=== PATIENT | female | born 1995 | race Caucasian/White ===

== ENCOUNTER 2018-09-16 13:50 | Emergency (ER) | payer MEDICAID, SELFPAY ==
[2018-09-16 13:52] VITALS: BP 121/72; PULSE 104; RESP 16; TEMP 36; O2SAT 100; BMI 25.8
--- NOTE | 2018-09-16 14:27 | CT_ITS ---
STUDY: CT BRAIN WITHOUT CONTRAST REASON FOR EXAM: Female, 23 years old. 2 month history of tunnel vision. RADIATION DOSAGE (If Supplied By Facility): CTDIvol = ( 44.99 ) mGy, DLP = ( 745.49 ) mGycm TECHNIQUE: Transaxial CT imaging of the brain was performed without administration of intravenous contrast material. Individualized dose optimization techniques were used for this CT. COMPARISON: None. FINDINGS: Normal soft tissue structures. Normal calvarium. Normal size ventricles and extra-axial spaces for the patient's age. Normal white matter tracts of the cerebral hemispheres. Normal basal ganglia and thalami. Normal brainstem. Normal cerebellum. There is no intracranial hemorrhage. There are no findings of an acute ischemic infarction. Normal visualized paranasal sinuses. CT/Brain/Head without Contrast IMPRESSION: Normal unenhanced CT scan of the brain. Electronically Signed: Jeffery Solis MD at 15:38 EST , Service support ,
[2018-09-16 15:08] LABS: Absolute Lymphocyte Count 2.16 X10^3/ul (0.83-4.51); Absolute Neutrophil Count 6.7 X10^3/uL (2.0-7.7); Basophil# 0.04 X10^3/uL; Basophil% 0.4 % (0-1); Eosinophil# 0.03 X10^3/uL; Eosinophils% 0.3 % (0-5); Hematocrit 40.7 % (37-47); Hemoglobin 14.1 g/dl (12.0-15.0); Lymphocyte # 2.16 X10^3/ul (4.0); Lymphocyte % 22.3 % (19-41); Mean Corp Hgb Conc 34.6 g/gl (32-36); Mean Corpuscular Hgb 29.6 pg (27.0-32.0); Mean Corpuscular Volume 85.5 fL (81-99); Mean Platelet Vol. 9.2 fl (6.2-12.0); Monocyte# 0.71 X10^3/uL; Monocyte% 7.3 % (0-10); Neutrophil # 6.72 X10^3/uL (2.7-7.7); Neutrophil % 69.6 % (47-70); Platelet Count 450 K/mm3 (150-450); RBC Distribution Width SD 36.6 fl (35.1-43.9); Red Blood Count 4.76 M/mm3 (4.2-5.4); White Blood Count 9.7 K/mm3 (4.4-11.0)
[2018-09-16 15:09] LABS: POSITIVE COUNT NO; POSITIVE DIFFERENTIAL NO; POSITIVE MORPHOLOGY NO
[2018-09-16 15:19] LABS: Prothrombin Time (Protime)PT. 12.7 SECONDS (11.7-14.9)
[2018-09-16 15:20] LABS: Partial Thromboplast Time 28.9 Seconds (24.1-36.2)
[2018-09-16 15:24] LABS: Anion Gap 9 (5-15); BUN 15 mg/dL (7-18); BUN/Creat Ratio 22.8 RATIO (10-20); Calcium,Total 8.9 mg/dL (8.5-10.1); Chloride 102 mmol/L (98-107); Creatinine, Serum 0.66 mg/dL (0.55-1.02); EST Glomerular Filtration Rate 116 mL/min (>60); Est Glom Filt Rate - Afr Amer 140 mL/min (>60); Estimated Creatinine Clearance 126.71 ml/min; Glucose 88 mg/dL (74-106); Potassium 3.7 mmol/L (3.5-5.1); Sodium Level 135 mmol/L (136-145)
--- NOTE | 2018-09-16 16:25 | ED.VISSUMM ---
- ER Visit Summary Date of Service: 09/16/18 Chief Complaint: Tunnel vision History of Present Illness: The patient is a 23 F who presents with tunnel vision that has been getting worse over the past 1-1/2 months. Patient states she has pressure behind both of her eyes but is worse on the right. Patient states her tunnel vision is also worse on the right. Patient saw an juice bar team member 3 days ago and was told she had swelling of her optic nerves and increased pressure in her brain. Patient was given a slip for an outpatient MRI with and without contrast and MRV. Patient has not had this scheduled yet. Patient admits to intermittent pressure on the left side of her head. Patient denies any diplopia. Patient denies any nausea or vomiting. Patient denies any paresthesias or weakness. Patient does admit to some neck pain. Patient denies any difficulty urinating. Physical Examination: Vital signs are stable. Patient is afebrile. Patient is in no acute distress. Pupils are equal, round, and reactive to light bilaterally. Extraocular muscles are intact. There is papilledema noted bilaterally on funduscopic examination. There is no hemorrhage noted. Oral mucosa is pink and moist. Neck is supple. Trachea is midline. There is no JVD noted. Heart was regular rate and rhythm. Lungs are clear and equal bilateral. Abdomen is soft. Bowel sounds are normal. There is no tenderness. There is no guarding noted. Skin is warm dry. Cranial nerves II through XII are intact. There are no focal motor or sensory deficits noted. The remaining physical exam is within normal limits. Test Results: CT scan of the brain does not show any mass. There is no acute intracranial abnormality. CBC and basic metabolic profile were within normal limits. Emergency Department Course and Treatment: Patient was advised of her findings. Patient was instructed to schedule her outpatient MRI and MRV soon. Patient was instructed to follow-up with her primary care physician and juice [employer] team member in 5-7 days. Patient and family understood and were agreeable with the plan. All questions were answered. Disposition: Discharge home Impression: Papilledema This note was generated with [id number] software. It may contain incorrect words, spelling, and punctuation that were not noted in review of the chart prior to signing ED Disposition - Plan for ED Patient: Disposition: Home or Assisted Living Diagnosis: Papilledema Instructions: ED Double Vision Referrals: Care Physician,No Primary [Primary Care Provider] -
--- NOTE | 2018-09-16 16:29 | ED.DCSUM_ITS ---
- ER Visit Summary Date of Service: 09/16/18 Chief Complaint: Tunnel vision History of Present Illness: The patient is a 23 F who presents with tunnel vision that has been getting worse over the past 1-1/2 months. Patient states she has pressure behind both of her eyes but is worse on the right. Patient s tates her tunnel vision is also worse on the right. Patient saw an police officer booking 3 days ago and was told she had swelling of her optic nerves and increased pressure in her brain. Patient was given a slip for an outpatient MRI with and without contrast and MRV. Patient has not had this scheduled yet. Patient admits to intermittent pressure on the left side of her head. Patient denies any diplopia. Patient denies any nausea or vomiting. Patient denies any paresthesias or weakness. Patient does admit to some neck pain. Patient denies any difficulty urinating. Physical Examination: Vital signs are stable. Patient is afebrile. Patient is in no acute distress. Pupils are equal, round, and reactive to light bilaterally. Extraocular muscles are intact. There is papilledema noted bilaterally on funduscopic examination. There is no hemorrhage noted. Oral mucosa is pink and moist. Neck is supple. Trachea is midline. There is no JVD noted. Heart was regular rate and rhythm. Lungs are clear and equal bilateral. Abdomen is soft. Bowel sounds are normal. There is no tenderness. There is no guarding noted. Skin is warm dry. Cranial nerves II through XII are intact. There are no focal motor or sensory deficits noted. The remaining physical exam is within normal limits. Test Results: CT scan of the brain does not show any mass. There is no acute intracranial abnormality. CBC and basic metabolic profile were within normal limits. Emergency Department Course and Treatment: Patient was advised of her findings. Patient was instructed to schedule her outpatient MRI and MRV soon. Patient was instructed to follow-up with her primary care physician and police officer booking in 5-7 days. Patient and family understood and were agreeable with the plan. All questions were answered. Disposition: Discharge home Impression: Papilledema This note was generated with [employer] software. It may contain incorrect words, spelling, and punctuation that were not noted in review of the chart prior to signing ED Disposition - Plan for ED Patient: Disposition: Home or Assisted Living Diagnosis: Papilledema Instructions: ED Double Vision Referrals: Care Physician,No Primary [Primary Care Provider] -
[2018-09-16 16:42] VITALS: BP 109/74; PULSE 62; RESP 15; O2SAT 97
== END 2018-09-16 16:43 | disposition home or self-care (01) ==
PROVIDERS: Emergency Provider Emergency Medicine
DX: H47.10 Unspecified papilledema (principal)
CPT/HCPCS: 70450; 80048; 85025; 85610; 85730; 99283

== ENCOUNTER → 2018-09-23 16:17 | Outpatient (CLI) | payer SELFPAY ==
[2018-09-16 13:52] VITALS: BMI 25.8
--- NOTE | 2018-09-23 16:24 | MRI_ITS ---
Papilledema, tunnel vision, R/O venous sinus thrombosis Exam: Cranial MRV TECHNIQUE: Routine non-contrast Whza-tv-sigeum MRV angiogram protocol was performed without gadolinium. 3D reconstructions were reviewed. IV Contrast dosage and agent: None. COMPARISON: MR brain 09/23/2018 FINDINGS: Normal examination. Normal flow related enhancement of the dural venous sinuses. No thrombosis or focal lesion identified. No suspicious findings. MRI/MRV Head Without Contrast IMPRESSION: Negative non-contrast cranial MRV. No evidence of dural venous thrombosis. at 0307 Reported and signed by: Yunier Murray MD Electronically Signed: Yunier Murray, at 3:06 EST Tel , Service support ,
--- NOTE | 2018-09-23 16:24 | MRI_ITS ---
HISTORY: Papilledema, tunnel vision, R/O venous sinus thrombosis TECHNIQUE: Multiplanar and multisequence MR images of the brain were obtained without and with gadolinium. IV Contrast dosage and agent: 7 cc Gadavist COMPARISON: Cranial CT 09/16/2018 FINDINGS: Good quality exam. No motion. Normal ventricles and normal coleman-white matter differentiation. No white matter disease. No intracranial mass, hemorrhage, or acute disease. Negative diffusion-weighted images. Posterior fossa and midline structures show no signal abnormality. Specifically, the pituitary gland is not enlarged. No enhancing lesion or extra-axial fluid collection. Normal flow voids within the major vessels. The cerebellar pontine angle regions appear normal. As visualized, the mastoids and paranasal sinuses are clear. MRI/Brain W/WO Contrast IMPRESSION: Normal examination. No suspicious findings. at 3134 Reported and signed by: Yunier Murray MD Electronically Signed: Yunier Murray, at 2:53 EST Tel , Service support ,
== END ==
DX: H47.11 Papilledema associated with increased intracranial pressure (principal)
CPT/HCPCS: 70544; 70553; A9585

== ENCOUNTER 2023-08-07 05:50 | Emergency (ER) | payer MEDICAID, SELFPAY ==
[2023-08-07 05:51] VITALS: BP 141/89; PULSE 88; RESP 18; TEMP 36.6; O2SAT 98; BMI 31.5
--- NOTE | 2023-08-07 06:12 | EDS_ITS ---
HPI History of Present Illness Chief Complaint: Chest Pain Informant: patient Narrative Narrative: Patient is a 28-year-old female who reports a past medical history of narcolepsy. She states she has had COVID in the past and her grandmother was just admitted to the TCU floor and there were patient is up there with COVID that she could have been exposed to while visiting. She states that she feels like her lungs are inflamed and this causes some chest discomfort and she is concerned that she may have developed COVID or pneumonia and therefore comes in for evaluation. Patient denies any family history of cardiac disease at a young age she denies any recent travel surgery or history of DVT/PE and she denies any history of excessive stimulant or illicit drug use. [facility] Medical History Narcolepsy Home Medications NK 08/07/23 [History Last Taken Unknown] Allergy/AdvReac Type Severity Reaction Status Date / Time amoxicillin AdvReac Itching Verified 08/07/23 05:55 Social History Smoking Status: Former smoker ROS ROS ED Constitutional Constitutional ED: Denies chills or fever(s) ENT ENT ED: Denies sore throat Cardiovascular Cardiovascular: Reports chest pain; Denies palpitations or racing heartbeat Respiratory/Chest Respiratory/Chest: Denies cough or dyspnea Gastrointestinal Gastrointestinal: Denies abdominal pain, diarrhea, nausea or vomiting Genitourinary Genitourinary ED: Denies dysuria Musculoskeletal Musculoskeletal: Denies myalgias Integumentary Denies rash Neurologic Neurologic: Denies headache(s) Hematologic/Lymphatic Hematologic/Lymphatic: Denies easy bleeding or easy bruising EXAM Physical Exam Const Vital Signs: 08/07/23 05:51 08/07/23 05:51 Temperature 97.8 F Temperature Source Temporal Pulse Rate 88 Respiratory Rate 18 Respiratory Effort Normal Blood Pressure 141/89 H Blood Pressure Mean 106 Pulse Ox 98 Oxygen Delivery Method Room Air Positive well nourished and well developed General Appearance ED: well developed; Negative for pallor HEENT Reports moist mucous membranes HEENT Narrative: There is mild cobblestoning the posterior pharynx consistent with sinus drainage No tongue or lip swelling. No oral lesions. No airway edema or compromise Eyes PERRL and EOMs intact bilaterally General Eye ED: Negative for scleral icterus Neck supple and no JVD Neck Narrative: No nuchal rigidity or meningeal signs noted Chest Wall palpation of chest normal Chest Narrative: No bony deformity or crepitance present Resp normal respiratory effort Resp Narrative: Breath sounds are slight diminished with faint rhonchi in the bilateral lower lobes but otherwise no nasal flaring retractions tachypnea stridor or accessory muscle use Cardio regular rate and regular rhythm Rate: other Other Details: Heart is regular rate and rhythm without murmurs rubs or gallops Radial and carotid pulses are equal and symmetric GI normal to inspection, nondistended, normoactive bowel sounds, non-tender, non- distended and no masses Auscultation: normoactive bowel sounds Palpation: soft Extremity normal to inspection Extremity Narrative: No asymmetric edema no pitting edema negative Homans' sign bilaterally Neuro oriented x3, CN's II-XII intact bilaterally and no sensory deficits noted Sensorium / Orientation: alert Motor Exam: strength 5/5 throughout Psych mental status grossly normal Skin no rashes or lesions noted General Skin Exam: Negative for jaundice or pallor MDM MDM MDM Narrative Medical decision making narrative: Patient presented to the ER with mild hypertension but otherwise stable vitals. She is low risk for acute coronary syndrome as she is not a diabetic does not have a family history of heart disease at young age and no reported history or treatment for hypertension hyperlipidemia or diabetes. He also denies any history of illicit drug use. Does admit to smoking when she was younger but quit 3 years ago. Her main concern was chest pain secondary to potential COVID or pneumonia or even a tumor as of her history of smoking. I do not feel there is need for a D-dimer as the patient is not tachycardic or hypoxic or febrile. She also does not have any history of travel surgery previous DVT or hormone use. With the patient's EKG showing no dysrhythmia or signs of ischemia or NE there is no concern at this time for acute coronary syndrome. Chest x-ray rules out pneumonia pneumothorax or pleural effusion. Viral swabs are negative for COVID flu and RSV. This time I do feel that she most likely has a start of a viral illness but as she is not hypoxic or in respiratory distress or requiring supplemental oxygen she is otherwise safe for discharge History & Record Review Discussion w/independent historian: Patient Radiography Diagnostic Testing: Clinical Impression(s) from Imaging Studies Chest X-Ray 08/07/23 06:18 IMPRESSION: No evidence of active intrathoracic disease. Electronically Signed: Frances Fine MD at 6:46 EST , 2 view chest x-ray as interpreted by the emergency medicine physician reveals no acute infiltrate pneumothorax or pleural effusion Discharge Plan Triage Chief Complaint: Chest Pain ED Provider: Duy Romero Dx/Rx/DC Orders Clinical Impression: Acute nonspecific chest pain with low risk of coronary artery disease Instructions: ED Chest Pain, Uncertain Cause, ED Viral Syndrome (Adult) Prescriptions: No Action NK Primary Care Provider: Care Physician,No Primary Referrals: Ramakrishna Tirado MD [Med Staff - Active Staff] - Care Physician,No Primary [Primary Care Provider] - Disposition Disposition: Home, Self Care
--- NOTE | 2023-08-07 06:18 | RAD_ITS ---
INDICATION: chest pain EXAMINATION/TECHNIQUE: X-RAY - XR Chest 2 Views COMPARISON: None. FINDINGS: LINES/DEVICES: None. LUNGS: No consolidation. No pneumothorax. MEDIASTINUM: Unremarkable. CARDIAC SILHOUETTE: Not enlarged. BONES AND SOFT TISSUES: No acute abnormalities. RAD/Chest PA and Lateral IMPRESSION: No evidence of active intrathoracic disease. Electronically Signed: Frances Fine MD at 6:46 EST ,
--- OUTSIDE RECORDS SUMMARY | 2023-08-07 06:39 | XMS RPT_ITS | CCD ---
Author Name Unknown Address [address] [place] [address] Organization [facility] Care Team Providers Care Forklift Supervisor Name Role Phone OSMANI FELIX Unavailable Unavailable PHYSICIAN, NONE Unavailable Unavailable [facility] Referring Unavailable Jay Finley MD Primary Care Provider Pcp, No Primary Care Provider Unavailabl e Pcp, No Primary Care Provider Unavailabl e Pcp, No Primary Care Provider Unavailabl e Joe Webb Unavailable [place] ADMISSIONS ASSISTANT, Mayra E Primary Care Provider Jay Finley MD Primary Care Provider Pcp ADMISSIONS ASSISTANT, No Primary Care Provider Unavailabl e Pcp ADMISSIONS ASSISTANT, No Primary Care Provider Unavailabl e Pcp ADMISSIONS ASSISTANT, No Primary Care Provider Unavailabl e Joe Webb Unavailable [place] ADMISSIONS ASSISTANT, Mayra E Primary Care Provider Allergies Allergy Classification Reported Allergen(s) Allergy Type Date of Onset Reaction(s) Facility (3 sources) Amoxicillin; Translations: [AMOXICILLIN] Drug Allergy 7 Itching [facility] Repository (2 sources) FLUoxetine Drug Allergy 9 Other: See Comments [facility] (2 sources) PARoxetine Drug Allergy 9 Other: See Comments [facility] (2 sources) Sertraline Drug Allergy 9 Other: See Comments [facility] Problems Active Problems Problem Classification Problem Date Documented Date Episodic/Chronic Allergic reactions (2 sources) Atopic dermatitis; Translations: [Other atopic dermatitis] Onset: 07-11-2011 08-26-2019 Chronic Anxiety disorders (2 sources) Anxiety state; Translations: [Generalized anxiety disorder] Onset: 07-21-2010 08-26-2019 Chronic Attention-deficit, conduct, and disruptive behavior disorders (2 sources) Attention deficit hyperactivity disorder; Translations: [Attention-deficit hyperactivity disorder, unspecified type] Onset: 07-21-2010 08-26-2019 Chronic Headache; including migraine (2 sources) Migraine; Translations: [Migraine, unspecified, not intractable, without status migrainosus] Onset: 10-26-2010 08-26-2019 Chronic Mood disorders (2 sources) Depressive disorder; Translations: [Other specified depressive episodes] Onset: 07-21-2010 08-26-2019 Chronic Other eye disorders (1 source) Papilledema associated with increased intracranial pressure Onset: 10-21-2018 Chronic Other eye disorders (2 sources) Optic disc edema; 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] Onset: 08-26-2019 08-26-2019 Chronic Other nervous system disorders (2 sources) Benign intracranial hypertension; Translations: [Benign intracranial hypertension] 12-05-2018 Chronic Other nervous system disorders (2 sources) Cataplexy and narcolepsy; Translations: [Narcolepsy with cataplexy] 08-26-2019 Chronic Substance-related disorders (4 sources) Drug abuse; Translations: [Other psychoactive substance abuse, uncomplicated] Onset: 08-26-2019 08-26-2019 Chronic Past or Other Problems Problem Classification Problem Date Documented Da te Episodic/Chronic Other aftercare (2 sources) Drug therapy finding; Translations: [Encounter for therapeutic drug level monitoring] Onset: 08-26-2019 08-26-2019 Episodic Poisoning by other medications and drugs (2 sources) Poisoning by multiple unspecified drugs, medicaments and biological substances, accidental (unintentional), initial encounter; Translations: [Poisoning by unspecified drug or medicinal substance] Onset: 08-26-2019 08-26-2019 Episodic Results Test Name Value Interpretation Reference Range Facil ity Encounters Encounter Date Encounter Type Care Provider Facility Start: 10-21-2018 Patient encounter procedure [facility] Facility:[facility] Start: 04-19-2018 End: 04-19-2018 Emergency department patient visit OSMANI FELIX Facility:B Start: 04-30-2015 Patient encounter procedure Concepcion Cole MD Work Phone: [facility] Start: 04-30-2015 Progress Note Concepcion Cole MD Work Phone: [facility] Start: 12-04-2011 Documentation procedure Danna Celeste Work Phone: [facility] Start: 12-04-2011 Historic EMR Danna Dougherty nce Work Phone: [facility] Procedures Date Procedure Procedure Detail Performing Clinician Start: 12-04-2011 SURGICAL PATHOLOGY, CONVERTED Danna Celeste Work Phone: Plan of Treatment Date Care Activity Detail Author Start: 04-06-2023 Influenza vaccination Influenza Vacc ine (#1) [facility] Start: 08-06-2022 Depression Assessment Depression Ass essment [facility] Start: 04-06-2022 Influenza vaccination INFLUENZA (Sea son Ended) [facility] Start: 2014 PAP TESTING PAP TESTING [facility] Start: 2012 Urine microalbumin profile [facility] Start: 2011 HEPATITIS C SCREENING HEPATITIS C SC REENING [facility] Start: 2011 HIV SCREENING HIV SCREENING [facility] Start: 1998 COVID-19 VACCINE (#1) COVID-19 VACCI NE (#1) [facility] Start: 01-27-1994 Covid-19 Vaccine (#1) Covid-19 Vacci ne (#1) [facility] Start: 1993 Hepatitis B Vaccine (1 of 3 - 3-dose series) Hepatitis B Vaccine (1 of 3 - 3-dose series) [facility] Payers Date Payer Category Payer Unknown [id number] 2001 Private Health Insurance [employer] A ET[employer] PPO [id number] 2001-2013 [address] [place] [address] PPO [id number] Social History Date Type Detail Facility [facility] Start: 1993 Sex Assigned At Not on file [facility] Start: 08-26-2019 End: 07-13-2020 History of Social function [facility] Start: 08-26-2019 End: 07-13-2020 Tobacco use panel [facility] Adult Depression Screening Assessment 0 [facility] History of Present illness Narrative 04-30-2015 Concepcion Cole MD - 04/30/2015 3:05 AM EDT Note Date & Type Note Facility 04-30-2015 History of Presen t illness Narrative DATE OF VISIT: 04/29/2015 HISTORY OF PRESENT ILLNESS: This 19-year-old female patient came [facility] with a complaint of lump in the right anterior chest wall area for the last 2 weeks which started in small pimple and increased in size and she was worried about infection and wanted to be evaluated. Denies any fever, chills, cough, nausea, vomiting or any diarrhea, trouble breathing or trouble swallowing. Denies any rash in other part of body. She did have some pimples and skin lesions, which has been apparently self drained in the past. The patient's last menstrual was 4 weeks ago. She has been on Suboxone. The patient is allergic to penicillin and amoxicillin, but no trouble taking Bactrim. Her shots are up-to-date. PHYSICAL EXAMINATION: VITAL SIGNS: Temperature 97.7, pulse is 82, respiratory rate 20, blood pressure 116/82, and pulse ox 99% on room air. SKIN: She was noted to have small, about 1.5 x 1 cm slightly raised erythematous rash in the right anterior chest wall area, which only slightly blanched, but no true abscess was noted. There was no red streak. No other rashes noted on general observation and examination throughout the body. HEENT: Throat is clear and intact. Ears clear. NECK: Supple. LUNGS: Clear. No wheezing or rales noted. HEART: Regular rate and rhythm. No murmurs auscultated. ABDOMEN: Soft, positive bowel sounds, nontender, no guarding, rebound or rigidity. EXTREMITIES: No skin rash. No joint edema or erythema. No nuchal rigidity. We did obtain a urine test, which was negative. She was put on Bactrim and advised gentle warm compress to affected area. If she starts having hive formation or any abscess, she needs to be evaluated for incision and drainage; however, we do not make an incision in the anterior chest wall area due to cosmetic reason with no apparent abscess and follow with primary care physician. ASSESSMENT: Infected skin rash in the anterior chest wall area. Needs followup. Concepcion Cole MD SP/nts [id number] CC: Verified/Reviewed by 09/28/20 1722 [email or web address] [facility] PATIENT NAME: VINOD CRAIG [address] [place] MEDICAL REC #: [id number] [place] [address] [facility]IC[facility] documented in this encounter [facility] Summary Purpose Family History No Family History Records FoundNo Family History Records FoundNo Family History Records FoundNo Family History Records Found Advance Directives Documents on File Type Date Recorded Patient Button Decorating Machine Operator Expl anation Advance Directive(s) 11/07/2016 3:05 PM Advance Directive(s) 10/08/2016 3:55 PM Advance Directive(s) 09/25/2016 1:31 AM Additional Source Comments INFORMATION SOURCE (unrecogn ized section and content) DATE CREATED AUTHOR AUTHOR'S ORGANIZ ATION 10/24/2018 [facility] DATE CREATED AUTHOR AUTHOR'S ORGANIZ ATION 02/06/2021 [facility] DATE CREATED AUTHOR AUTHOR'S ORGANIZ ATION 02/06/2021 [facility] Source Comments (unrecognize d section and content) In the event this informatio n is protected by the Federal Confidentiality of Alcohol and Drug Abuse Patient Records regulations: The Federal rules restrict any use of the information to criminally investigate or prosecute any alcohol or drug abuse patient.[facility] the event this information is protected by the Federal Confidentiality of Alcohol and Drug Abuse Patient Records regulations: The Federal rules restrict any use of the information to criminally investigate or prosecute any alcohol or drug abuse patient.[facility] Care Teams (unrecognized sec tion and content) Forklift Supervisor Relationship Specialty Start Date End Date Jay Finley MD [address] [place] [address] PCP - General 05/29/02 09/24/16 Pcp, No, ADMISSIONS ASSISTANT PCP - General 09/25/16 11/06/16 Pcp, No, ADMISSIONS ASSISTANT PCP - General 11/07/16 06/05/17 Pcp, No, ADMISSIONS ASSISTANT PCP - General 09/04/17 04/05/18 Mayra Hopson APRN [address] [place], [place] PCP - General Family Medicine 08/26/19 Joe Webb [address] [place], [place] Pipe Cleaning Machine Operator Ophthalmology 09/16/18 FOR RECORDS PERTAINING TO PATIENTS WHO ARE OR HAVE BEEN ENROLLED IN A CHEMICAL DEPENDENCY/SUBSTANCEABUSE PROGRAM, SOME INFORMATION MAY BE OMITTED. This clinical summary was aggregated from multiple sources. Caution should be exercised in using it in the provision of clinical care. This summary normalizes information from multiple sources, and as a consequence, information in this document may materially change the coding, format and clinical context of patient data. In addition, data may be omitted in some cases. CLINICAL DECISIONS SHOULD BE BASED ON THE PRIMARY CLINICAL RECORDS. [facility] [employer] [facility]. provides no warranty or guarantee of the accuracy or completeness of information in this document.
[2023-08-07 07:27] VITALS: BP 137/89; PULSE 81; RESP 14; O2SAT 100
== END 2023-08-07 07:29 | disposition home or self-care (01) ==
PROVIDERS: Emergency Provider Emergency Medicine; Visit Provider Emergency Medicine
DX: R07.9 Chest pain, unspecified (principal); Z87.891 Personal history of nicotine dependence
CPT/HCPCS: 71046; 87428; 87634; 93005; 99282

== ENCOUNTER 2023-08-10 15:59 | Emergency (ER) | payer MEDICAID, SELFPAY ==
[2023-08-10] VITALS (12 sets, daily range): BP systolic 119–133; BP diastolic 73–81; PULSE 83–105; RESP 12–20; TEMP 36.3; O2SAT 97–100; BMI 30.9
--- NOTE | 2023-08-10 17:04 | ED.VIS.CHEST ---
HPI History of Present Illness Chief Complaint: Chest Pain Informant: patient Narrative Narrative: Patient presents with chest pain. Patient's been having chest pain for about 5 days. It is just right of the sternum. Cannot think of anything that makes it better or worse. Occasionally she has some tingling sensation in her middle index and thumb of her right hand. She does not think she is short of breath but might be a little short of breath when the pain is more. No nausea vomiting diaphoresis or exertional symptoms. She was seen here the other day. She had been exposed to viruses and thought that this might be the start. But she states she has never developed a viral syndrome. She now brings up information that her mother's family evidently has factor V Leiden. She has had some aunt or uncle with a PE or DVT. But her mother does not have factor V Leiden she has never been checked. She has no travel surgery immobilization personal or family history in a first-degree relative of DVT or PE though. [facility] Medical History Narcolepsy Home Medications NK 08/07/23 [History Last Taken Unknown] Allergy/AdvReac Type Severity Reaction Status Date / Time amoxicillin AdvReac Itching Verified 08/10/23 16:00 Social History Smoking Status: Former smoker ROS ROS ED ROS Narrative A complete review of systems was performed and is negative except as documented in the history of present illness. Some specific details below. Constitutional: No recent fevers or chills. No malaise. EYE: No discharge, visual complaints, or pain. ENT: No difficulty swallowing. No swelling. No pain. No reflux symptoms. CV: See history of present illness. Respiratory: See history of present illness. Not short of breath now. Not coughing. GI: No abdominal pain. No nausea vomiting diarrhea. No blood in stool. : No frequency dysuria or hematuria. Musculoskeletal: No recent trauma. No pains. No swelling. She has had some paresthesias and tingling in 3 lateral fingers of her right hand intermittently. But no weakness. Skin: No rash. Nondiaphoretic. Neuro: No weakness or numbness. Endocrine: No polyuria or polydipsia. EXAM Physical Exam Narrative Exam Narrative: CONSTITUTIONAL: Patient is nontoxic in appearance. The patient looks comfortable. Work of breathing looks normal. HEENT: No notable trauma. Mucous membranes moist. No sinus tenderness. No indication of pain with swallowing. EYES: No conjunctival injection. No proptosis. NECK:No JVD. No stridor. CARDIOVASCULAR: Regular rate. Regular rhythm. No notable murmur. No JVD. No significant chest wall tenderness. Peripheral pulses are equal x 4. No muffled tones. RESPIRATORY: No respiratory distress. Breathing is unlabored. No wheezes. No rhonchi. No rales. No pain with a deep breath. No chest wall tenderness. GASTROINTESTINAL: Not distended. Bowel sounds are normal. No tenderness. GENITOURINARY: No tenderness over the bladder. No CVA tenderness. MUSCULOSKELETAL: Atraumatic. No peripheral edema. No cord. No tenderness along the deep venous system. No asymmetry. No distended veins. NEUROLOGICAL: Patient is alert and appropriate. No focal deficit noted. Sensation and director data processing strength are all still intact including in the affected fingers with paresthesias. SKIN: No noted rashes. No diaphoresis. Note a multitude of old well-healed lacerations transversely across her forearm on the right. PSYCHIATRIC: Patient is calm. Mood is appropriate. Const Vital Signs: 08/10/23 16:00 08/10/23 16:52 08/10/23 17:00 Temperature 97.3 F L Temperature Source Temporal Pulse Rate 93 Respiratory Rate 14 Respiratory Pattern Normal Blood Pressure 133/80 H Blood Pressure Mean 97 Pulse Ox 98 Oxygen Delivery Method Room Air Room Air 08/10/23 17:18 08/10/23 17:20 08/10/23 17:30 Temperature Temperature Source Pulse Rate 90 93 85 Respiratory Rate 16 15 13 Respiratory Pattern Blood Pressure 119/81 H 128/78 H Blood Pressure Mean 93 94 Pulse Ox 97 97 99 Oxygen Delivery Method Room Air 08/10/23 17:40 08/10/23 17:50 08/10/23 18:00 Temperature Temperature Source Pulse Rate 96 91 83 Respiratory Rate 19 H 17 13 Respiratory Pattern Blood Pressure 128/73 H Blood Pressure Mean 86 Pulse Ox 100 99 100 Oxygen Delivery Method Room Air 08/10/23 18:10 08/10/23 18:20 Temperature Temperature Source Pulse Rate 88 105 H Respiratory Rate 13 20 H Respiratory Pattern Blood Pressure Blood Pressure Mean Pulse Ox 97 97 Oxygen Delivery Method MDM MDM MDM Narrative Medical decision making narrative: My independent interpretation of the patient's single view chest x-ray shows no acute process and final reading is similar. Her CBC is normal. Her electrolytes are overall normal. Her troponin is quite low at 4. Her level is negative. Her D-dimer is negative. Patient was concerned because while she was in the room, her heart rate went from about 89-113 over 3 seconds. The nurse recalls this event. The patient was very anxious at the time. I checked on the monitor. There is no significant ectopy. There is motion artifact and normal sinus beats. No SVT. No V. tach. Patient is okay for follow-up. Lab Data Attestation: I reviewed the patient's lab results. Labs: Laboratory Results - last 24 hr 08/10/23 17:09 WBC 9.4 RBC 4.41 Hgb 12.2 Hct 36.5 L MCV 82.8 MCH 27.7 MCHC 33.4 RDW Std Deviation 36.2 RDW Coeff of Faye 11.9 Plt Count 417 MPV 9.2 Immature Gran % (Auto) 0.300 Neut % (Auto) 65.5 Lymph % (Auto) 26.6 Vigo % (Auto) 6.8 Eos % (Auto) 0.4 Baso % (Auto) 0.4 Absolute Neuts (auto) 6.2 Absolute Lymphs (auto) 2.50 Nucleated RBC % 0 D-Dimer Quant (PE/DVT) < 0.27 L Sodium 137 Potassium 3.7 Chloride 106 Carbon Dioxide 27.0 Anion Gap 4 L BUN 11 Creatinine 0.74 Estim Creat Clear Calc 108.10 Est GFR (MDRD) Af Amer 119 Est GFR (MDRD) Non-Af 99 BUN/Creatinine Ratio 14.9 Glucose 96 Calcium 9.0 Troponin I High Sens 4 Serum , Qual NEGATIVE Radiography Diagnostic Testing: Clinical Impression(s) from Imaging Studies Chest X-Ray 08/10/23 17:18 IMPRESSION: No radiographic evidence of acute cardiopulmonary disease. Electronically Signed: Jase Blum DO at 17:29 EST Reading Location ID and State: [facility] / [place] Tel [phone], Service support , Discharge Plan Triage Chief Complaint: Chest Pain ED Provider: Elroy Lozoya Dx/Rx/DC Orders Clinical Impression: History of anxiety, Chest pain Instructions: ED Chest Pain, Uncertain Cause Prescriptions: No Action NK Primary Care Provider: Care Physician,No Primary Referrals: Jessica Crews MD [Med Staff - Winchman/Crane Operator] - As soon as possible Care Physician,No Primary [Primary Care Provider] - Disposition Disposition: Home, Self Care
[2023-08-10] MEDS: 0.9% Normal Saline (1000mL) 500 ML 1000 ML IV (17:16)
--- NOTE | 2023-08-10 17:18 | RAD_ITS ---
INDICATION: chest pain EXAMINATION/TECHNIQUE: X-RAY - XR Chest 1 View COMPARISON: FINDINGS: LINES/DEVICES: None. LUNGS: No consolidation, edema or effusion. No pneumothorax. MEDIASTINUM AND CARDIOVASCULAR STRUCTURES: Cardiac silhouette not enlarged. Central airways and mediastinal contour are unremarkable. BONES AND SOFT TISSUES: Unremarkable. RAD/Chest 1 View (Portable) IMPRESSION: No radiographic evidence of acute cardiopulmonary disease. Electronically Signed: Jase Blum DO at 17:29 EST ,
--- OUTSIDE RECORDS SUMMARY | 2023-08-10 17:22 | XMS RPT_ITS | CCD ---
Author Name Unknown Address [address] [place] [address] Organization [facility] Care Team Providers Care Mailing Jogger Name Role Phone OSMANI FELIX Unavailable Unavailable PHYSICIAN, NONE Unavailable Unavailable [facility] Referring Unavailable Jay Finley MD Primary Care Provider Pcp, No Primary Care Provider Unavailabl e Pcp, No Primary Care Provider Unavailabl e Pcp, No Primary Care Provider Unavailabl e Joe Webb Unavailable [phone] [employer] INSURANCE AND FINANCIAL SERVICES AGENT, Mayra E Primary Care Provider Jay Finley MD Primary Care Provider Pcp INSURANCE AND FINANCIAL SERVICES AGENT, No Primary Care Provider Unavailabl e Pcp INSURANCE AND FINANCIAL SERVICES AGENT, No Primary Care Provider Unavailabl e Pcp INSURANCE AND FINANCIAL SERVICES AGENT, No Primary Care Provider Unavailabl e Joe Webb Unavailable [employer] INSURANCE AND FINANCIAL SERVICES AGENT, Mayra E Primary Care Provider Allergies Allergy Classification Reported Allergen(s) Allergy Type Date of Onset Reaction(s) Facility (3 sources) Amoxicillin; Translations: [AMOXICILLIN] Drug Allergy 7 Itching [facility] (2 sources) FLUoxetine Drug Allergy 9 Other: See Comments [facility] (2 sources) PARoxetine Drug Allergy 9 Other: See Comments [facility] (2 sources) Sertraline Drug Allergy 9 Other: See Comments [facility] Problems Active Problems Problem Classification Problem [...] Facility Start: 10-21-2018 Patient encounter procedure IM[facility] Facility:[facility] Start: 04-19-2018 End: 04-19-2018 Emergency department patient visit OSMANI FELIX Facility:B Start: 04-30-2015 Patient encounter procedure Concepcion Cole MD Work Phone: [facility] Start: 04-30-2015 Progress Note Concepcion Cole MD Work Phone: [facility] Start: 12-04-2011 Documentation procedure Danna Celeste Work Phone: [facility] Start: 12-04-2011 Historic EMR Danna Dougherty nce Work Phone: [facility] Procedures Date Procedure Procedure Detail Performing Clinician Start: 12-04-2011 SURGICAL PATHOLOGY, CONVERTED Danna Celeste Work Phone: Plan of Treatment Date Care Activity Detail Author Start: 04-06-2023 Influenza vaccination Influenza Vacc ine (#1) [facility] Start: 08-06-2022 Depression Assessment Depression Ass essment [facility] Start: 04-06-2022 Influenza vaccination INFLUENZA (Sea son Ended) [facility] Start: 2014 PAP TESTING PAP TESTING [facility] Start: 2012 Urine microalbumin profile [facility] Start: 2011 HEPATITIS C SCREENING HEPATITIS C SC REENING [facility] Start: 2011 HIV SCREENING HIV SCREENING [facility] Start: 1998 COVID-19 VACCINE (#1) COVID-19 VACCI NE (#1) [facility] Start: 01-27-1994 Covid-19 Vaccine (#1) Covid-19 Vacci ne (#1) [facility] Start: 1993 Hepatitis B Vaccine (1 of 3 - 3-dose series) Hepatitis B Vaccine (1 of 3 - 3-dose series) [facility] Payers Date Payer Category Payer Unknown [id number] 2001 Private Health Insurance [employer] PPO [id number] 2001-2013 [address] [place] [address] PPO [id number] Social History Date Type Detail [facility] Start: 1993 Sex Assigned At Not on file C [facility] Start: 08-26-2019 End: 07-13-2020 History of Social function [facility] Start: 08-26-2019 End: 07-13-2020 Tobacco use panel [facility] Adult Depression Screening Assessment 0 [facility] History of Present illness Narrative 04-30-2015 [...] area. Needs followup. Concepcion Cole MD SP/nts [id number] CC: Verified/Reviewed by 09/28/[address] [facility] PATIENT NAME: VINOD CRAIG [address] [place] MEDICAL REC #: [id number] [place] [address] [facility] STAT[facility]ARE REPORT STATCARE PHYSICIAN documented in this encounter [facility] Summary Purpose Family History No Family History Records FoundNo Family History Records FoundNo Family History Records FoundNo Family History Records Found Advance Directives Documents on File Type Date Recorded Patient Seating And Mobility Technologist Expl anation Advance Directive(s) 11/07/2016 3:05 PM Advance Directive(s) 10/08/2016 3:55 PM Advance Directive(s) 09/25/2016 1:31 AM Additional Source Comments INFORMATION SOURCE (unrecogn ized section and content) DATE CREATED AUTHOR AUTHOR'S ORGANIZ ATION 10/24/2018 [facility] DATE CREATED AUTHOR AUTHOR'S ORGANIZ ATION 02/06/2021 [facility] DATE CREATED AUTHOR AUTHOR'S ORGANIZ ATION 02/06/2021 [facility] Source Comments (unrecognize d section and content) In the event this informatio n is protected by the Federal Confidentiality of Alcohol and Drug Abuse Patient Records regulations: The Federal rules restrict any use of the information to criminally investigate or prosecute any alcohol or drug abuse patient.[facility] the event this information is protected by the Federal Confidentiality of Alcohol and Drug Abuse Patient Records regulations: The Federal rules restrict any use of the information to criminally investigate or prosecute any alcohol or drug abuse patient.[facility] Care Teams (unrecognized sec tion and content) Mailing Jogger Relationship Specialty Start Date End Date Jay Finley MD [address] [place] [address] PCP - General 05/29/02 09/24/16 Pcp, No, INSURANCE AND FINANCIAL SERVICES AGENT PCP - General 09/25/16 11/06/16 Pcp, No, INSURANCE AND FINANCIAL SERVICES AGENT PCP - General 11/07/16 06/05/17 Pcp, No, INSURANCE AND FINANCIAL SERVICES AGENT PCP - General 09/04/17 04/05/18 Mayra Hopson APRN [address] [place], [place] PCP - General Family Medicine 08/26/19 Joe Webb [address] [place], [place] Hollow Handle Bench Worker Ophthalmology 09/16/18 FOR RECORDS PERTAINING TO PATIENTS [...] BE BASED ON THE PRIMARY CLINICAL RECORDS. [facility] [employer] [facility]. provides no warranty or guarantee of the accuracy or completeness of information in this document.
[2023-08-10 17:24] LABS: Absolute Neutrophil Count 6.2 X10^3/uL (2.0-7.7); Basophil# 0.04 X10^3/uL; Basophil% 0.4 % (0-1); Eosinophil# 0.04 X10^3/uL; Eosinophils% 0.4 % (0-5); Hematocrit 36.5 % (37-47); Hemoglobin 12.2 g/dL (12.0-15.0); Lymphocyte % 26.6 % (19-41); Mean Corp Hgb Conc 33.4 g/dL (32-36); Mean Corpuscular Hgb 27.7 pg (27.0-32.0); Mean Corpuscular Volume 82.8 fL (81-99); Mean Platelet Vol. 9.2 fl (6.2-12.0); Monocyte# 0.64 X10^3/uL; Monocyte% 6.8 % (0-10); NRBC Flagged by Analyzer 0 % (0-5); Neutrophil # 6.16 X10^3/uL (2.7-7.7); Neutrophil % 65.5 % (47-70); Platelet Count 417 K/mm3 (150-450); RBC Distribution Width CV 11.9 % (11.6-14.6); RBC Distribution Width SD 36.2 fl (35.1-43.9); Red Blood Count 4.41 M/mm3 (4.2-5.4); White Blood Count 9.4 K/mm3 (4.4-11.0)
[2023-08-10 17:34] LABS: D-Dimer Quantitative (DVT/PE) < 0.27 FEU/ug/m (0.27-0.49)
[2023-08-10 17:39] LABS: Internal QC Validated? YES +Cl - CLEAR BKGD; Pregnancy, Serum, hCG Quali. NEGATIVE Negative; Record Kit Lot#, Serum Preg. 667200
[2023-08-10 17:40] LABS: Anion Gap 4 (5-15); BUN 11 mg/dL (7-18); BUN/Creat Ratio 14.9 RATIO (10-20); Chloride 106 mmol/L (98-107); Creatinine, Serum 0.74 mg/dL (0.55-1.02); EST Glomerular Filtration Rate 99 mL/min (>60); Est Glom Filt Rate - Afr Amer 119 mL/min (>60); Glucose 96 mg/dL (74-106); Potassium 3.7 mmol/L (3.5-5.1); Sodium Level 137 mmol/L (136-145); Troponin-I HS 4 pg/mL (3.0-54.0)
== END 2023-08-10 19:07 | disposition home or self-care (01) ==
PROVIDERS: Emergency Provider Emergency Medicine; Visit Provider Emergency Medicine
DX: R07.9 Chest pain, unspecified (principal); F41.9 Anxiety disorder, unspecified; Z87.891 Personal history of nicotine dependence
CPT/HCPCS: 71045; 80048; 84484; 84703; 85025; 85379; 93005; 96360; 99284; J7030; A4216

== ENCOUNTER → 2023-08-14 | Outpatient (CLI) | payer MEDICAID, SELFPAY ==
--- NOTE | 2023-08-14 14:16 | RAD_ITS ---
INDICATION: numbness EXAMINATION/TECHNIQUE: X-RAY - XR Spine Cervical 6 or More Views COMPARISON: No relevant prior comparison study available FINDINGS: VERTEBRAE: Preserved vertebral body height. No fracture. No spondylolisthesis. The alignment of the vertebral bodies unchanged on the flexion and extension views. Preservation of the normal cervical lordosis. No significant facet arthropathy. DISCS: Disc spaces are maintained. NECK SOFT TISSUES: No prevertebral soft tissue widening. LUNG APICES: Clear. RAD/Cerv Spine Obl/Flex/Ext Comp IMPRESSION: No significant abnormality is seen.. Electronically Signed: Natalio Montanez MD at 14:44 EST ,
[2023-08-14 18:12] LABS: Absolute Lymphocyte Count 1.85 X10^3/uL (0.83-4.51); Absolute Neutrophil Count 3.9 X10^3/uL (2.0-7.7); Basophil# 0.05 X10^3/uL; Basophil% 0.8 % (0-1); Eosinophil# 0.02 X10^3/uL; Eosinophils% 0.3 % (0-5); Hematocrit 38.6 % (37-47); Hemoglobin 12.7 g/dL (12.0-15.0); Lymphocyte # 1.85 X10^3/ul (0.83-4.51); Lymphocyte % 28.9 % (19-41); Mean Corp Hgb Conc 32.9 g/dL (32-36); Mean Corpuscular Hgb 27.5 pg (27.0-32.0); Mean Corpuscular Volume 83.5 fL (81-99); Mean Platelet Vol. 9.5 fl (6.2-12.0); Monocyte# 0.53 X10^3/uL; Monocyte% 8.3 % (0-10); NRBC Flagged by Analyzer 0 % (0-5); Neutrophil # 3.94 X10^3/uL (2.7-7.7); Neutrophil % 61.4 % (47-70); Platelet Count 437 K/mm3 (150-450); RBC Distribution Width CV 12.2 % (11.6-14.6); RBC Distribution Width SD 36.6 fl (35.1-43.9); Red Blood Count 4.62 M/mm3 (4.2-5.4); White Blood Count 6.4 K/mm3 (4.4-11.0)
[2023-08-14 18:33] LABS: Vitamin B12 385 pg/mL (211-911); Vitamin D,25 Hydroxy 20.3 ng/mL
[2023-08-14 18:47] LABS: ALB/GLOB Ratio 0.9 RATIO (0.9-2.4); AST(SGOT) 18 U/L (15-37); Alanine Aminotransfer ALT/SGPT 21 U/L (13-56); Albumin, Serum 3.8 g/dL (3.2-5.0); Alkaline Phosphatase 65 U/L (45-117); Anion Gap 6 (5-15); BUN 11 mg/dL (7-18); BUN/Creat Ratio 14.1 RATIO (10-20); Calcium,Total 8.4 mg/dL (8.5-10.1); Chloride 106 mmol/L (98-107); Cholesterol 235 mg/dL (200); Creatinine, Serum 0.78 mg/dL (0.55-1.02); EST Glomerular Filtration Rate 92 mL/min (>60); Est Glom Filt Rate - Afr Amer 112 mL/min (>60); Globulin 4.1 g/dL (2.2-4.2); Glucose 103 mg/dL (74-106); High Density Lipoprotein 80 mg/dL; Potassium 3.9 mmol/L (3.5-5.1); Protein, Total 7.9 g/dL (6.4-8.2); Sodium Level 138 mmol/L (136-145); T4 Free Direct 1.06 ng/dL (0.76-1.46); Thyroid Stim Hormone (TSH) 0.89 uIU/mL (0.358-3.74); Triglycerides 62 mg/dL; Very Low Density Lipoprotein 12 mg/dL (5-40)
== END | disposition home or self-care (01) ==
LOC: MTLAB 14:14
PROVIDERS: PCP Family Medicine; Referring Provider Family Medicine; Visit Provider Family Medicine
DX: R20.0 Anesthesia of skin (principal); R73.09 Other abnormal glucose; E55.9 Vitamin D deficiency, unspecified
CPT/HCPCS: 36415; 72052; 80053; 80061; 82306; 82607; 82746; 84439; 84443; 85025

== ENCOUNTER → 2023-08-16 | Outpatient (CLI) | payer MEDICAID, SELFPAY ==
--- NOTE | 2023-08-16 17:13 | RAD_ITS ---
INDICATION: back pain EXAMINATION/TECHNIQUE: X-RAY - XR Spine Thoracic 3 Views COMPARISON: None FINDINGS: VERTEBRAE: Preserved vertebral body height. No fracture. No spondylolisthesis. Preservation of the normal thoracic kyphosis. No significant facet arthropathy. DISCS: Disc spaces are maintained. INCLUDED CHEST/ABDOMEN: No acute abnormalities. RAD/Thoracic Spine 3 Views IMPRESSION: No evidence of thoracic spinal fracture or spondylolisthesis. Electronically Signed: Nakul Reich MD at 17:34 EST ,
--- OUTSIDE RECORDS SUMMARY | 2023-08-16 17:18 | XMS RPT_ITS | CCD ---
Author Name Unknown Address [address] [place] [address] Organization [facility] Care Team Providers Care Mica Laminating Machine Feeder Name Role Phone [facility] Referring Unavailable Jay Finley MD Primary Care Provider Pcp, No Primary Care Provider Unavailabl e Pcp, No Primary Care Provider Unavailabl e Pcp, No Primary Care Provider Unavailabl e Joe Webb Unavailable [employer] SALES DONOR RECRUITMENT REPRESENTATIVE, Mayra E Primary Care Provider Jay Finley MD Primary Care Provider Pcp SALES DONOR RECRUITMENT REPRESENTATIVE, No Primary Care Provider Unavailabl e Pcp SALES DONOR RECRUITMENT REPRESENTATIVE, No Primary Care Provider Unavailabl e Pcp SALES DONOR RECRUITMENT REPRESENTATIVE, No Primary Care Provider Unavailabl e Joe Webb Unavailable [employer] SALES DONOR RECRUITMENT REPRESENTATIVE, Mayra E Primary Care Provider PHYSICIAN, NOT RECORDED Primary Care Physician U navailable RIDER, CANDIDA Attending Unavailable PHYSICIAN, NOT RECORDED Primary Care Unavaila ble Allergies Allergy Classification Reported Allergen(s) Allergy Type Date of Onset Reaction(s) Facility (4 sources) Amoxicillin; Translations: [AMOXICILLIN] Drug Allergy [address] 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 Chronic Substance-related disorders (5 sources) Drug abuse; Translations: [Other psychoactive substance [...] Date Encounter Type Care Provider Facility Start: 08-11-2023 End: 08-10-2023 Emergency department patient visit DR CANDIDA WOLFE DO [facility] Start: 08-10-2023 End: 08-10-2023 Emergency department patient visit CANDIDA WOLFE Facility:[facility] Start: 10-21-2018 Patient encounter procedure IMCA Facility:[facility] Start: 04-30-2015 Patient encounter procedure Concepcion Cole MD Work Phone: [facility] Start: 04-30-2015 Progress Note Concepcion Cole MD Work Phone: [facility] Start: 12-04-2011 Documentation procedure Danna Oksana Booker Work Phone: [facility] Start: 12-04-2011 Historic EMR Danna Oksana Ladonna nce Work Phone: [facility] Procedures Date Procedure Procedure Detail Performing Clinician Start: 12-04-2011 SURGICAL PATHOLOGY, CONVERTED Danna Oksana Booker Work Phone: Dilation and curettage DR JORGE LUIS WOLFE DO Entire hand (body structure) DR CANDIDA WOLFE DO Plan of Treatment Date Care Activity Detail Author Start: 04-06-2023 Influenza vaccination Influenza Vacc ine (#1) [facility] Start: 08-06-2022 Depression Assessment Depression Ass essment [facility] Start: 04-06-2022 Influenza vaccination INFLUENZA (Sea son Ended) [facility] Start: 2014 PAP TESTING PAP TESTING [facility] Start: 2012 Urine microalbumin profile [facility] Start: 2011 HEPATITIS C SCREENING HEPATITIS C SC REENING [facility] Start: 2011 HIV SCREENING HIV SCREENING [facility] Start: 1998 COVID-19 VACCINE (#1) COVID-19 VACCI NE (#1) [facility] Start: 01-27-1994 Covid-19 Vaccine (#1) Covid-19 Vacci ne (#1) [facility] Start: 1993 Hepatitis B Vaccine (1 of 3 - 3-dose series) Hepatitis B Vaccine (1 of 3 - 3-dose series) [facility] Payers Date Payer Category Payer Unknown [id number] 2001 Private Health Insurance [employer] PPO [id number] 2001-[address] [place] [address] PPO [id number] 1993 Unknown [id number] Social History Date Type Detail Facility [facility] Start: 1993 Sex Assigned At Not on file C [facility] Start: 08-26-2019 End: 07-13-2020 History of Social function [facility] Start: 08-26-2019 End: 07-13-2020 Tobacco use panel [facility] Adult Depression Screening Assessment 0 [facility] Start: 05-05-2020 Tobacco smoking status Light t obacco smoker (finding) [facility] Sex Assigned At Sex [facility] History of Present illness Narrative 04-30-2015 Concepcion [...] area. Needs followup. Concepcion Cole MD SP/nts [id number] CC: Verified/Reviewed by 09/28/20 1722 PERS [facility] PATIENT NAME: VINOD CRAIG Rebeca [address] [place] MEDICAL REC #: [id number] [place] [address] [facility] STATCARE REPORT STATCARE PHYSICIAN documented in this encounter [facility] Evaluation + Plan note Note Date & Type Note Facility Evaluation + Plan note No data available for this section [facility] Hospital Discharge instructions Note Date & Type Note Facility Hospital Discharge instructions No data available for this section [facility] Progress note Note Date & Type Note Facility Progress note No data available for this section [facility] Summary Purpose Family History No Family History Records FoundNo Family History Records FoundNo Family History Records Found No data available for this section No Family History Records Found Advance Directives No Advanced Directives Records FoundDocuments on File Type Date Recorded Patient Bed Worker Expl anation Advance Directive(s) 11/07/2016 3:05 PM Advance Directive(s) 10/08/2016 3:55 PM Advance Directive(s) 09/25/2016 1:31 AM Additional Source Comments INFORMATION SOURCE (unrecogn ized section and content) DATE CREATED AUTHOR AUTHOR'S ORGANIZ ATION 02/06/2021 [facility] DATE CREATED AUTHOR AUTHOR'S ORGANIZ ATION 02/06/2021 [facility] DATE CREATED AUTHOR AUTHOR'S ORGANIZ ATION 08/12/2023 [facility] ([place]) Source Comments (unrecognize d section and content) In the event this informatio n is protected by the Federal Confidentiality of Alcohol and Drug Abuse Patient Records regulations: The Federal rules restrict any use of the information to criminally investigate or prosecute any alcohol or drug abuse patient[facility] the event this information is protected by the Federal Confidentiality of Alcohol and Drug Abuse Patient Records regulations: The Federal rules restrict any use of the information to criminally investigate or prosecute any alcohol or drug abuse patient.[facility] Care Teams (unrecognized sec tion and content) Mica Laminating Machine Feeder Relationship Specialty Start Date End Date Jay Finley MD [address] [place] [address] PCP - General 05/29/02 09/24/16 Pcp, No, SALES DONOR RECRUITMENT REPRESENTATIVE PCP - General 09/25/16 11/06/16 Pcp, No, SALES DONOR RECRUITMENT REPRESENTATIVE PCP - General 11/07/16 06/05/17 Pcp, No, SALES DONOR RECRUITMENT REPRESENTATIVE PCP - General 09/04/17 04/05/18 Mayra Hopson APRN [address] [place] [address] PCP - General Family Medicine 08/26/19 Joe Webb [address] [place] [address] Flat Lock Machine Operator Ophthalmology 09/16/18 FOR RECORDS PERTAINING [...] BE BASED ON THE PRIMARY CLINICAL RECORDS. [facility] [employer] [facility]. provides no warranty or guarantee of the accuracy or completeness of information in this document.
== END | disposition home or self-care (01) ==
LOC: MTRAD 17:13
PROVIDERS: PCP Family Medicine; Referring Provider Family Medicine; Visit Provider Family Medicine
DX: M54.9 Dorsalgia, unspecified (principal)
CPT/HCPCS: 72070; 72072

== ENCOUNTER 2023-08-18 23:20 | Emergency (ER) | payer MEDICAID, SELFPAY ==
[2023-08-18 23:23] VITALS: BP 133/90; PULSE 105; RESP 18; TEMP 36.8; O2SAT 99; BMI 31.4
--- NOTE | 2023-08-18 23:55 | EX.ED.DYSGE1 ---
HPI History of Present Illness Chief Complaint: Numb/Ting Narrative Narrative: 28-year-old female presenting for evaluation. Patient states she continues to have right-sided chest pain which she has had for several days. She was told it was musculoskeletal in nature. She had a complete cardiac workup with a negative D-dimer. She also has concern that she has had some numbness and tingling radiating from the right side of her shoulder down into her arm. At times she gets cramping. Denies any trauma. She states that she followed up with her PCP who told her she likely had something musculoskeletal and did do an x-ray of the cervical spine which was negative. The patient then started googling things that could cause her symptoms and she states that she believes she has a pancoast tumor. Patient states that this is because she has shoulder pain and it radiates down her arm. She states that this also is due to the neck pain that she experiences and she also states she has pain in her upper ribs on the right. [facility] Medical History Narcolepsy Home Medications baclofen 10 mg tablet 10 mg PO BID 08/18/23 [History Last Taken Unknown] buspirone 5 mg tablet 5 mg PO DAILY PRN 08/18/23 [History Last Taken Unknown] trazodone 50 mg tablet 50 mg PO QHS PRN insomnia 08/18/23 [History Last Taken Unknown] Allergy/AdvReac Type Severity Reaction Status Date / Time amoxicillin AdvReac Itching Verified 08/18/23 23:29 Social History Smoking Status: Former smoker ROS ROS ED Constitutional Constitutional ED: Denies chills, fever(s) or sweats Eyes Eyes: Denies blurry vision or change in vision ENT ENT ED: Denies ear pain or sore throat Cardiovascular Cardiovascular: Reports chest pain; Denies palpitations or racing heartbeat Respiratory/Chest Respiratory/Chest: Denies cough, dyspnea or sputum Gastrointestinal Gastrointestinal: Denies abdominal pain, constipation, diarrhea, nausea or vomiting Genitourinary Genitourinary ED: Denies dysuria, hematuria or urinary frequency Musculoskeletal Musculoskeletal: Reports neck pain and other Details: Right shoulder pain. ; Denies arthralgias or myalgias Integumentary Denies abscess, Abrasions or rash Neurologic Neurologic: Denies headache(s), paresthesias or weakness Psychiatric Psychiatric: Denies anxiety, depression, suicidal ideation or suicidal thoughts Endocrine Endocrinology: Denies polydipsia or polyuria EXAM Physical Exam Const Vital Signs: 08/18/23 23:23 08/18/23 23:26 Temperature 98.2 F Temperature Source Oral Pulse Rate 105 H Respiratory Rate 18 Respiratory Effort Normal Non-Labored Blood Pressure 133/90 H Blood Pressure Mean 104 Pulse Ox 99 Oxygen Delivery Method Room Air Positive well nourished General Appearance ED: NAD; Negative for pallor HEENT Reports moist mucous membranes Eyes PERRL and EOMs intact bilaterally Neck no lymphadenopathy Chest Wall inspection of chest normal and palpation of chest normal Resp normal respiratory effort Auscultation: Negative for rales, rhonchi or wheezes Cardio regular rate and regular rhythm GI normal to inspection, nondistended, normoactive bowel sounds Extremity Extremity Narrative: Tenderness to palpation over the right deltoid. No pain over the bicipital groove. There are some slight pain located in the distal aspect of the trapezius just proximal to the shoulder. No anterior tenderness. Both biceps and triceps strength 5/5. Patient able to resist flexion and extension of the elbow with 5/5 strength. Pronation and supination are normal. Right hand neurovascular intact with cap refill to all 5 fingers. Normal Rodrigo's test. Negative Tinel's sign. Neuro oriented x3 Sensorium / Orientation: alert Psych mental status grossly normal Mood & Affect: anxious Skin no rashes or lesions noted General Skin Exam: Negative for jaundice or pallor MDM MDM MDM Narrative Medical decision making narrative: Patient presenting with symptoms of right shoulder pain which she has had. She has had a cardiac workup which was negative. Negative D-dimer. She is concerned that she might have a Pancoast tumor which I explained to her was unlikely. I explained to her several times that it is unlikely that she has a Pancoast tumor and that her most likely cause however the patient is very anxious and states that we will make her feel better if she knows. I counseled her that this does not qualify as a medical reason to obtain a CT. We went over several different options of explanations as to why she would have pain in both her chest and her shoulder and that her exam was fairly unremarkable. She stated at that point she wanted to talk to her mother and determine whether she wanted a CT scan. I reviewed her previous lab work and imaging and this was all normal with a negative D-dimer. I counseled her that there is no medical reason she needs a CT tonight but she is insisting that she get a CT of her chest to rule out a Pancoast tumor. I had then again counseled her that she could have all of this done as an outpatient to her primary care physician and could get it done in a timely manner as she had already seen her primary for this. I specifically noted that she did not have any symptoms of a Matt syndrome. She did not have any weakness or drooping of her eyelid. Her pupil equal to the contralateral pupil. No atypical sweating on the face. She then insisted she wanted a CT which was ordered. She has a chest shows no PE, dissection, Pancoast tumor or other suspicious abnormalities of the pulmonary parenchyma. There is some food in the esophagus which is likely due to the patient just recently eating. I do not believe she has an obstruction or retained foodstuffs. She is sitting comfortably maintaining her own secretions with no abdominal pain or other symptoms. Patient counseled on need of imaging. I recommended she follow-up with her PCP. Impression: 1. Feared complaint not found Radiography Diagnostic Testing: Clinical Impression(s) from Imaging Studies Chest CT 08/19/23 00:00 IMPRESSION: Significant amount of heterogeneous material throughout the entire length of the esophagus, suggesting retained foodstuffs, with thickening of the GE junction and associated adjacent hazy fat stranding, which may represent focal esophagitis or other obstruction. Electronically Signed: Simba Brown MD at 0:52 EST , Discharge Plan Triage Chief Complaint: Numb/Ting Other Complaint: Chest Pain ED Provider: Adair Lester Dx/Rx/DC Orders Prescriptions: No Action baclofen 10 mg tablet 10 mg PO BID trazodone 50 mg tablet 50 mg PO QHS PRN (Reason: insomnia) buspirone 5 mg tablet 5 mg PO DAILY PRN Primary Care Provider: Patti Esqueda Referrals: Patti Esqueda MD [Primary Care Provider] -
--- OUTSIDE RECORDS SUMMARY | 2023-08-18 23:59 | XMS RPT_ITS | CCD ---
Author Name Unknown Address [address] [place] [address] Organization [facility] Care Team Providers Care Labor Utilization Superintendent Name Role Phone [facility] Referring Unavailable Jay Finley MD Primary Care Provider Pcp, No Primary Care Provider Unavailabl e Pcp, No Primary Care Provider Unavailabl e Pcp, No Primary Care Provider Unavailabl e Joe Webb Unavailable McMorrow DESKTOP OPERATOR, Mayra E Primary Care Provider [phone] Jay Finley MD Primary Care Provider Pcp DESKTOP OPERATOR, No Primary Care Provider Unavailabl e Pcp DESKTOP OPERATOR, No Primary Care Provider Unavailabl e Pcp DESKTOP OPERATOR, No Primary Care Provider Unavailabl e Joe Webb Unavailable McMorrow DESKTOP OPERATOR, Mayra E Primary Care Provider PHYSICIAN, NOT RECORDED Primary Care Physician U navailable RIDER, CANDIDA Attending Unavailable PHYSICIAN, NOT RECORDED Primary Care Unavaila ble Allergies Allergy Classification Reported Allergen(s) Allergy Type Date of Onset Reaction(s) Facility (4 sources) Amoxicillin; Translations: [AMOXICILLIN] Drug Allergy 7 Itching [facility] Repository (2 sources) FLUoxetine Drug Allergy 9 Other: See Comments [facility] (2 sources) PARoxetine Drug Allergy 9 Other: See Comments [facility] (2 sources) Sertraline Drug Allergy 9 Other: See Comments [facility] (1 source) Penicillin; Translations: [penicillins] Drug Allergy [facility] Problems Active Problems Problem Classification Problem Date [...] department patient visit DR CANDIDA WOLFE DO [facility] Start: 08-10-2023 End: 08-10-2023 Emergency department patient visit CANDIDA WOLFE Facility:[facility] Start: 10-21-2018 Patient encounter procedure IMCA Facility:[facility] Start: 04-30-2015 Patient encounter procedure Concepcion Cole MD Work Phone: Start: 04-30-2015 Progress Note Concepcion Cole MD Work Phone: [facility] Start: 12-04-2011 Documentation procedure Danna Oksana Booker Work Phone: Start: 12-04-2011 Historic EMR Danna Oksana Ladonna nce Work Phone: IF [facility] HOD Procedures Date Procedure Procedure Detail Performing Clinician Start: 12-04-2011 SURGICAL PATHOLOGY, CONVERTED Danna Oksana Booker Work Phone: Dilation and curettage DR JORGE LUIS WOLFE DO Entire hand (body structure) DR CANDIDA WOLFE DO Plan of Treatment Date Care Activity Detail Author Start: 04-06-2023 Influenza vaccination Influenza Vacc ine (#1) [facility] Start: 08-06-2022 Depression Assessment Depression Ass essment [facility] Start: 04-06-2022 Influenza vaccination INFLUENZA (Sea son Ended) [facility] Start: 2014 PAP TESTING PAP TESTING [facility] Start: 2012 Urine microalbumin profile [facility] Start: 2011 HEPATITIS C SCREENING HEPATITIS C SC REENING [facility] Start: 2011 HIV SCREENING HIV SCREENING [facility] Start: 1998 COVID-19 VACCINE (#1) COVID-19 VACCI NE (#1) [facility] Start: 01-27-1994 Covid-19 Vaccine (#1) Covid-19 Vacci ne (#1) [facility] Start: 1993 Hepatitis B Vaccine (1 of 3 - 3-dose series) Hepatitis B Vaccine (1 of 3 - 3-dose series) [facility] Payers Date Payer Category Payer Unknown [id number] 2001 Private Health Insurance [employer] PPO [id number] 2001-[address] [place] [address] PPO [id number] 1993 Unknown [id number] Social History Date Type Detail [facility] Start: 1995 Sex Assigned At Not on file [facility] Start: 08-26-2019 End: 07-13-2020 History of Social function [facility] Start: 08-26-2019 End: 07-13-2020 Tobacco use panel [facility] Adult Depression Screening Assessment 0 [facility] Start: 05-05-2020 Tobacco smoking status Light t obacco smoker (finding) [facility] Sex Assigned At Sex [facility] History of Present illness Narrative 04-30-2015 [...] area. Needs followup. Concepcion Cole MD SP/nts [id number] CC: Verified/Reviewed by 09/28/20 1722 PERS PATIENT NAME: VINOD CRAIG Rebeca [address] [facility] [address] Bennett MEDICAL REC #: [id number] [place] [address] [facility] RE[facility] STATCARE PHYSICIAN documented in this encounter [facility] Evaluation + Plan note Note Date & Type Note Facility Evaluation + Plan note No data available for this section [facility] Hospital Discharge instructions Note Date & Type Note Facility Hospital Discharge instructions No data available for this section [facility] Progress note Note Date & Type Note Facility Progress note No data available for this section [facility] Summary Purpose Family History No Family History Records FoundNo Family History Records FoundNo Family History Records Found No data available for this section No Family History Records Found Advance Directives No Advanced Directives Records FoundDocuments on File Type Date Recorded Patient Carroter Expl anation Advance Directive(s) 11/07/2016 3:05 PM Advance Directive(s) 10/08/2016 3:55 PM Advance Directive(s) 09/25/2016 1:31 AM Additional Source Comments INFORMATION SOURCE (unrecogn ized section and content) DATE CREATED AUTHOR AUTHOR'S ORGANIZ ATION 02/06/2021 [facility] DATE CREATED AUTHOR AUTHOR'S ORGANIZ ATION 02/06/2021 [facility] DATE CREATED AUTHOR AUTHOR'S ORGANIZ ATION 08/12/2023 [facility] ([place]) Source Comments (unrecognize d section and content) In the event this informatio n is protected by the Federal Confidentiality of Alcohol and Drug Abuse Patient Records regulations: The Federal rules restrict any use of the information to criminally investigate or prosecute any alcohol or drug abuse patient.[facility] the event this information is protected by the Federal Confidentiality of Alcohol and Drug Abuse Patient Records regulations: The Federal rules restrict any use of the information to criminally investigate or prosecute any alcohol or drug abuse patient.[facility] Care Teams (unrecognized sec tion and content) Labor Utilization Superintendent Relationship Specialty Start Date End Date Jay Finley MD [address] [place] [address] PCP - General 05/29/02 09/24/16 Pcp, No, DESKTOP OPERATOR PCP - General 09/25/16 11/06/16 Pcp, No, DESKTOP OPERATOR PCP - General 11/07/16 06/05/17 Pcp, No, DESKTOP OPERATOR PCP - General 09/04/17 04/05/18 Mayra Hopson APRN [address] [place] [id number] PCP - General Family Medicine 08/26/19 Joe Webb [address] [place] [address] [employer]cycle Engine [employer]er Ophthalmology 09/16/18 FOR RECORDS PERTAINING TO PATIENTS [...] BE BASED ON THE PRIMARY CLINICAL RECORDS. [facility] Offerial [facility]. provides no warranty or guarantee of the accuracy or completeness of information in this document.
--- NOTE | 2023-08-19 | CT_ITS ---
INDICATION: patient requested, secondary chest pain. EXAMINATION: - CT Chest W/ Contrast Injection A radiation dose optimization technique was used for this scan. RADIATION DOSAGE (If Supplied By Facility): CTDIvol/DLP = 12.64 / 389.95 mGy / mGycm COMPARISON: 08/10/2023 chest radiograph. FINDINGS: Contrast enhanced serial CT axial images through the chest with coronal and sagittal reformatted series. IV Contrast dosage and agent: 100 cc Isovue-370 IV. MEDIASTINUM: No acute thoracic aortic abnormality. No obvious large proximal pulmonary artery filling defects. Significant amount of heterogeneous material throughout the entire length of the esophagus, suggesting retained foodstuffs, with thickening of the GE junction and associated adjacent hazy fat stranding, which may represent focal esophagitis or other obstruction. Mediastinum is otherwise unremarkable. LUNG PARENCHYMA: No acute pulmonary parenchymal abnormality. PLEURA: No pleural effusion. No pneumothorax. BONES: Osseous structures are unremarkable for age. UPPER ABDOMEN: Unremarkable. CT/Chest WITH Contrast IMPRESSION: Significant amount of heterogeneous material throughout the entire length of the esophagus, suggesting retained foodstuffs, with thickening of the GE junction and associated adjacent hazy fat stranding, which may represent focal esophagitis or other obstruction. Electronically Signed: Simba Brown MD at 0:52 EST ,
== END 2023-08-19 02:04 | disposition home or self-care (01) ==
PROVIDERS: Emergency Provider Student in an Organized Health Care Education/Training Program; PCP Family Medicine; Visit Provider Student in an Organized Health Care Education/Training Program
DX: R07.9 Chest pain, unspecified (principal); Z87.891 Personal history of nicotine dependence; Z71.1 Person with feared health complaint in whom no diagnosis is made
CPT/HCPCS: 71260; 99284; Q9967; A4216

== ENCOUNTER → 2024-04-18 | Outpatient (CLI) | payer MEDICAID, SELFPAY ==
[2024-04-18 10:17] LABS: Absolute Lymphocyte Count 2.02 X10^3/uL (0.83-4.51); Absolute Neutrophil Count 2.4 X10^3/uL (2.0-7.7); Basophil# 0.04 X10^3/uL; Basophil% 0.8 % (0-1); Eosinophil# 0.17 X10^3/uL; Eosinophils% 3.3 % (0-5); Hematocrit 34.5 % (37-47); Hemoglobin 11.1 g/dL (12.0-15.0); Lymphocyte # 2.02 X10^3/ul (0.83-4.51); Lymphocyte % 39.2 % (19-41); Mean Corp Hgb Conc 32.2 g/dL (32-36); Mean Corpuscular Hgb 27.9 pg (27.0-32.0); Mean Corpuscular Volume 86.7 fL (81-99); Mean Platelet Vol. 9.7 fl (6.2-12.0); Monocyte# 0.48 X10^3/uL; Monocyte% 9.3 % (0-10); NRBC Flagged by Analyzer 0 % (0-5); Neutrophil # 2.43 X10^3/uL (2.7-7.7); Neutrophil % 47.2 % (47-70); Platelet Count 359 K/mm3 (150-450); RBC Distribution Width CV 13.3 % (11.6-14.6); RBC Distribution Width SD 42.1 fl (35.1-43.9); Red Blood Count 3.98 M/mm3 (4.2-5.4); White Blood Count 5.2 K/mm3 (4.4-11.0)
[2024-04-18 11:31] LABS: ALB/GLOB Ratio 0.9 RATIO (0.9-2.4); AST(SGOT) 17 U/L (15-37); Alanine Aminotransfer ALT/SGPT 12 U/L (13-56); Albumin, Serum 3.4 g/dL (3.2-5.0); Alkaline Phosphatase 73 U/L (45-117); Anion Gap 9 (5-15); BUN 12 mg/dL (7-18); BUN/Creat Ratio 19.3 RATIO (10-20); Calcium,Total 8.5 mg/dL (8.5-10.1); Chloride 105 mmol/L (98-107); Creatinine, Serum 0.62 mg/dL (0.55-1.02); EST Glomerular Filtration Rate 119 mL/min (>60); Est Glom Filt Rate - Afr Amer 144 mL/min (>60); Ferritin 25 ng/mL (8-252); Globulin 3.7 g/dL (2.2-4.2); Glucose 139 mg/dL (74-106); Iron 20 ug/dL (50-170); Iron Binding Capacity,Total 303 ug/dL (250-450); PERCENT IRON SATURATION 6.6 % (15.0-55.0); Potassium 3.9 mmol/L (3.5-5.1); Protein, Total 7.1 g/dL (6.4-8.2); Sodium Level 138 mmol/L (136-145); Thyroid Stim Hormone (TSH) 0.827 uIU/mL (0.358-3.740)
[2024-04-18 15:07] LABS: Vitamin D,25 Hydroxy 30.9 ng/mL
[2024-04-20 09:07] LABS: PROGESTERONE 0.1 ng/mL (.)
[2024-04-23 17:08] LABS: Estrogen, Total, Serum 165 pg/mL (.); Zinc, Plasma or Serum 68 ug/dL (44-115)
== END | disposition home or self-care (01) ==
LOC: MTLAB 09:05
PROVIDERS: PCP Family Medicine; Referring Provider Family Medicine; Visit Provider Family Medicine
DX: N92.0 Excessive and frequent menstruation with regular cycle (principal); R73.09 Other abnormal glucose; L68.0 Hirsutism; E55.9 Vitamin D deficiency, unspecified
CPT/HCPCS: 36415; 80053; 82306; 82672; 82728; 83540; 83550; 84144; 84443; 84630; 85025

== ENCOUNTER → 2024-09-19 | Outpatient (CLI) | payer MEDICAID, SELFPAY ==
[2024-09-19 17:58] LABS: Erythrocyte Sedimentation Rate 5 mm/hr (0-30)
[2024-09-19 17:59] LABS: Absolute Lymphocyte Count 2.08 X10^3/uL (0.83-4.51); Absolute Neutrophil Count 3.2 X10^3/uL (2.0-7.7); Basophil# 0.04 X10^3/uL; Basophil% 0.7 % (0-1); Eosinophils% 3.4 % (0-5); Hematocrit 37.5 % (37-47); Hemoglobin 12.3 g/dL (12.0-15.0); Lymphocyte # 2.08 X10^3/ul (0.83-4.51); Mean Corp Hgb Conc 32.8 g/dL (32-36); Mean Corpuscular Hgb 28.8 pg (27.0-32.0); Mean Corpuscular Volume 87.8 fL (81-99); Mean Platelet Vol. 9.3 fl (6.2-12.0); Monocyte# 0.41 X10^3/uL; Monocyte% 6.9 % (0-10); NRBC Flagged by Analyzer 0 % (0-5); Neutrophil % 53.8 % (47-70); Platelet Count 356 K/mm3 (150-450); RBC Distribution Width CV 12.6 % (11.6-14.6); RBC Distribution Width SD 40.6 fl (35.1-43.9); Red Blood Count 4.27 M/mm3 (4.2-5.4); White Blood Count 5.9 K/mm3 (4.4-11.0)
[2024-09-19 18:30] LABS: AST(SGOT) 20 U/L (15-37); Alanine Aminotransfer ALT/SGPT 20 U/L (13-56); Albumin, Serum 3.9 g/dL (3.2-5.0); Alkaline Phosphatase 57 U/L (45-117); Anion Gap 7 (5-15); BUN 11 mg/dL (7-18); BUN/Creat Ratio 17.7 RATIO (10-20); Calcium,Total 8.8 mg/dL (8.5-10.1); Chloride 107 mmol/L (98-107); Creatinine, Serum 0.62 mg/dL (0.55-1.02); EST Glomerular Filtration Rate 119 mL/min (>60); Est Glom Filt Rate - Afr Amer 144 mL/min (>60); Ferritin 45 ng/mL (8-252); Glucose 106 mg/dL (74-106); Iron 66 ug/dL (50-170); Iron Binding Capacity,Total 305 ug/dL (250-450); PERCENT IRON SATURATION 21.6 % (15.0-55.0); Potassium 3.5 mmol/L (3.5-5.1); Protein, Total 7.9 g/dL (6.4-8.2); Rheumatoid Factor < 10.0 IU/mL (<15); Sodium Level 137 mmol/L (136-145)
[2024-09-19 20:08] LABS: Vitamin D,25 Hydroxy 18.5 ng/mL (29.95-100.01)
[2024-09-22 14:08] LABS: Dilute Prothrombin Time (dPT) 34.3 sec (0.0-47.6); Dilute Russell Viper Venom 31.2 sec (0.0-47.0); Interpretation Comment: (.); PTT-LA 33.9 sec (0.0-43.5); Thrombin Time 17.6 sec (0.0-23.0); dPT Confirm Ratio 1.08 Ratio (0.00-1.34)
[2024-09-26 16:09] LABS: ANTINUCLEAR ANTIBODIES DIRECT Negative (Negative); Anti-Histone Abs 0.5 Units (0.0-0.9)
== END | disposition home or self-care (01) ==
PROVIDERS: PCP Family Medicine; Referring Provider Family Medicine; Visit Provider Family Medicine
DX: L65.9 Nonscarring hair loss, unspecified (principal); R73.09 Other abnormal glucose; R21 Rash and other nonspecific skin eruption; E55.9 Vitamin D deficiency, unspecified; N92.0 Excessive and frequent menstruation with regular cycle
CPT/HCPCS: 36415; 80053; 82306; 82728; 83540; 83550; 84443; 85025; 85652; 86038; 86235; 86431

== ENCOUNTER → 2024-12-12 | Outpatient (CLI) | payer MEDICAID, SELFPAY ==
[2024-12-12 18:14] LABS: Ferritin 51 ng/mL (22-378)
[2024-12-12 18:27] LABS: Erythrocyte Sedimentation Rate 4 mm/hr (0-30)
[2024-12-12 19:27] LABS: CRP < 3.00 mg/L (0.0-3.0)
[2024-12-14 08:07] LABS: Transferrin 241 mg/dL (192-364)
== END | disposition home or self-care (01) ==
PROVIDERS: PCP Family Medicine; Referring Provider Family Medicine; Visit Provider Family Medicine
DX: D64.9 Anemia, unspecified (principal)
CPT/HCPCS: 36415; 82728; 84466; 85652; 86140